=== PATIENT | female | born 1940 | race Two or more races ===

== ENCOUNTER 2020-12-18 10:09 | Outpatient (CLI) | payer OTHER | END 2020-12-18 10:48 | disposition home or self-care (01) | LOC: OFIC 805 10:09 | PROVIDERS: ATTEND Otolaryngology Otology & Neurotology | DX: H72.92 Unspecified perforation of tympanic membrane, left ear (principal); K21.9 Gastro-esophageal reflux disease without esophagitis; J31.0 Chronic rhinitis; R09.82 Postnasal drip ==